=== PATIENT | male | born 1990 | race Caucasian/White ===

== ENCOUNTER 2022-04-28 13:45 | Emergency (ER) | payer SELFPAY | END 2022-04-28 15:38 | disposition left against medical advice (07) | LOC: MW.ED 13:45 | DX: Z53.21 Procedure and treatment not carried out due to patient leaving prior to being seen by health care provider (principal) | CPT/HCPCS: 71045; 71045-26 ==

== ENCOUNTER 2022-05-14 04:04 | Emergency (ER) | payer SELFPAY ==
[2022-05-14] MEDS ORDERED: Lactated Ringers 1,000 ML IV STA (04:10)
[2022-05-14] MEDS ORDERED: Ondansetron 4 MG/2 ML SDV ONE (04:19)
[2022-05-14] MEDS ORDERED: Ondansetron 4 MG/2 ML SDV IVPUSH ONE (04:25)
[2022-05-14 04:48] LABS: BLOOD UREA NITROGEN,BUN 4 mg/dL (7.0-18.0); CARBON DIOXIDE,CO2 22.9 mmol/L (21.0-32.0); CHLORIDE,CL 96 mmol/L (98-107); GLUCOSE RANDOM 120 mg/dL (74-106); POTASSIUM,K 3.4 mmol/L (3.5-5.1); SODIUM,NA 133 mmol/L (136-148)
[2022-05-14 04:51] LABS: ESTIMATED GFR 103 mL/min (>60)
[2022-05-14 05:05] LABS: CORONAVIRUS COVID-19 NAA NEGATIVE (NEGATIVE); INFLUENZA A NAA NEGATIVE (NEGATIVE); INFLUENZA B NAA NEGATIVE (NEGATIVE); RESPIRATORY SYNCYTIAL VIR NAA NEGATIVE (NEGATIVE)
[2022-05-14] MEDS ORDERED: chlordiazePOXIDE 25 MG Cap PO ONE (06:19)
== END 2022-05-14 06:49 | disposition home or self-care (01) ==
LOC: MW.ED 04:04
DX: R56.9 Unspecified convulsions (principal); F10.239 Alcohol dependence with withdrawal, unspecified; Z20.822 Contact with and (suspected) exposure to COVID-19; Y90.0 Blood alcohol level of less than 20 mg/100 ml
CPT/HCPCS: 0241U; 36415; 70450; 71045; 80053; 80307; 82550; 82947; 83605; 83735; 84484; 85025; 85379; 85610; 93005; 96361; 96374; 99285; A9270; J2405; J7120; 93010